=== PATIENT | female | born 1990 | race African-American/Black ===

== ENCOUNTER 2021-11-20 11:01 | Emergency (ER) | payer OTHER ==
[~2021-11-20] VITALS: Ht 147.3 cm; Wt 68.4 kg
[2021-11-20] MEDS ORDERED: ONDANSETRON ODT 4 MG TAB.RAPDIS PO ONE (11:30)
[2021-11-20] MEDS ORDERED: diphenhydrAMINE 50 MG/ML VIAL IM ONE (11:30)
[2021-11-20] MEDS ORDERED: KETOROLAC 60 MG/2 ML VIAL. IM ONE (11:45)
--- NOTE | 2021-11-20 11:59 | RAD ---
Exam performed: CT scan of the head and cervical spine without contrast. Date of Service:10/23/2021 Comparison:None available . Clinical History: Headache, dizziness, status post chiropractor visit were reviewed at the time of di ctation. It is compared Technique: Helical acquisitions are obtained from the foramen magnum to the vertex and through the ce rvical spine without IV contrast. Sagittal and coronal reformatted images are obtained and reviewed . CT head findings: The ventricles are midline without evidence of dilatation. Normal stephens-white differentiation is main tained. There is no extra axial fluid collection, intraparenchymal hemorrhage or mass lesion. The v isualized portions of the orbits, paranasal sinuses and the mastoid air cells appear clear. The calv arium is intact. Impression: 1. No acute intracranial process detected. End impression CT cervical spine findings: Slight reversal of cervical curvature is noted. Craniocervical and C1-2 articulation appears preserve d. The vertebral body heights and intravertebral disc spaces are maintained. There is no gloria or r etrolisthesis. There is no perching of facets No prevertebral soft tissue swelling is identified. The re are no fractures. No definite lymphadenopathy or masses are seen within the neck. The visualized thyroid and salivary glands appears preserved. Impression: No acute abnormality seen in the CT scan cervical spine. RS Compliance Statement: One or more of the following individualized dose reduction techniques were utilized for this examinat ion: 1. Automated exposure control 2. Adjustment of the mA and/or kV according to patient size 3. Use of iterative reconstruction technique Electronically signed by: Beatrice Miller MD (11/20/2021 11:57 AM) [facility]
--- NOTE | 2021-11-20 12:05 | PHYS DOC ---
Past History Past Medical History: No Pertinent History Past Surgical History: No Surgical History Smoking: Non-smoker Drug Use: None General Adult EDM: Chief Complaint: HEADACHE HPI: HPI: Patient is a 31 year old female who presents with throbbing headache for the past 2 days. Patient states that she visited the chiropractor under advisement from her primary care doctor at [facility]. Ever since her neck adjustment, she has had headache with associated dizziness. She states the pain is 7/10 and throbbing in bilateral temporal regions. Patient denies neck pain, paresthesias, photophobia and phonophobia. Patient visited urgent care, but was advised to present to the ER. Patient denies history of migraines. She has no other complaints at this time. Review of Systems: Review of Systems: Constitutional: Denies fever, chills or generalized weakness Eyes: Denies change in visual acuity, visual field deficits or discharge HENT: Denies ear pain, nasal congestion or sore throat Respiratory: Denies cough or shortness of breath Cardiovascular: Denies chest pain, palpitations or edema GI: Denies abdominal pain, nausea, vomiting, bloody stools or diarrhea : Denies dysuria or hematuria Musculoskeletal: See HPI Integument: Denies rash or other skin lesion Neurologic: See HPI Current Medications: Current Meds: Current Medications Medications (Trade) Dose Ordered Sig/Sandra Start Time Stop Time Status Last Admin Dose Admin Diphenhydramine HCl (Benadryl) 50 mg 1X ONCE 11/20/21 11:30 11/20/21 11:36 DC 11/20/21 11:55 50 MG Ketorolac Tromethamine (Toradol Im) 60 mg 1X ONCE 11/20/21 11:45 11/20/21 11:46 DC 11/20/21 11:50 60 MG Ondansetron HCl (Zofran Odt) 4 mg 1X ONCE 11/20/21 11:30 11/20/21 11:36 DC 11/20/21 11:30 4 MG Allergies: Allergies: Allergies Coded Allergies Type Severity Reaction Last Updated Verified No Known Drug Allergies 11/20/21 No Physical Exam: PE: Constitutional: Well developed, well nourished, no acute distress, non-toxic appearance. HENT: Normocephalic, atraumatic, bilateral external ears normal, nose normal. Eyes: PERRL, EOMI, conjunctiva normal, no discharge. Neck: Normal range of motion, no step-off, no midline tenderness,, no paraspinal tenderness, supple, no stridor. Skin: Warm, dry, no erythema, no rash. Back: No step-off, no tenderness. Extremities: No cyanosis, no clubbing, ROM intact, no edema. Neurologic: Alert and oriented x4, normal motor function, normal sensory function, no focal deficits noted. Current Patient Data: Vital Signs: Vital Signs Date Time Temp Pulse Resp B/P (MAP) Pulse Ox O2 Delivery O2 Flow Rate FiO2 11/20/21 12:35 92 18 137/92 (107) 98 Room Air 11/20/21 11:26 97.8 132 20 148/105 (119) 99 Radiology/Procedures: Radiology/Procedures: PROCEDURE: CT HEAD AND CERVICAL SPINE WO Exam performed: CT scan of the head and cervical spine without contrast. Date of Service:10/23/2021 Comparison:None available . Clinical History: Headache, dizziness, status post chiropractor visit were revie wed at the time of dictation. It is compared Technique: Helical acquisitions are obtained from the foramen magnum to the vertex and through the cervical spine without IV contrast. Sagittal and coronal reformatted images are obtained and reviewed. CT head findings: The ventricles are midline without evidence of dilatation. Normal stephens-white differentiation is maintained. There is no extra axial fluid collection, intraparenchymal hemorrhage or mass lesion. The visualized portions of the orbits, paranasal sinuses and the mastoid air cells appear clear. The calvarium is intact. Impression: 1. No acute intracranial process detected. End impression CT cervical spine findings: Slight reversal of cervical curvature is noted. Craniocervical and C1-2 articulation appears preserved. The vertebral body heights and intravertebral disc spaces are maintained. There is no gloria or retrolisthesis. There is no perching of facets No prevertebral soft tissue swelling is identified. There are no fractures. No definite lymphadenopathy or masses are seen within the neck. The visualized thyroid and salivary glands appears preserved. Impression: No acute abnormality seen in the CT scan cervical spine. PQRS Compliance Statement: One or more of the following individualized dose reduction techniques were utilized for this examination: 1. Automated exposure control 2. Adjustment of the mA and/or kV according to patient size 3. Use of iterative reconstruction technique Electronically signed by: Beatrice Miller MD (11/20/2021 11:57 AM) UI-FRANCIS Heart Score: C/O Chest Pain: No Course & Med Decision Making: Course & Med Decision Making Pertinent Labs and Imaging studies reviewed. (See chart for details) Remington Disclaimer: Remington Disclaimer: This electronic medical record was generated, in whole or in part, using a voice recognition dictation system. Departure Departure: Impression: Primary Impression: Acute non intractable tension-type headache Disposition: HOME / SELF CARE / HOMELESS Condition: IMPROVED Referrals: PCP,UNKNOWN (PCP) Patient Instructions: Headache, FAQs, Tension Headache, [id number] Additional Instructions: EMERGENCY DEPARTMENT GENERAL DISCHARGE INSTRUCTIONS Thank you for coming to [facility] (ED) today and trusting us with you care. We trust that you had a positive experience in our Emergency Department. If you wish to speak to the department management, you may call the director at [phone]. YOUR FOLLOW UP INSTRUCTIONS ARE FOLLOWS: 1. Follow up with your primary care doctor. If you do not have a primary doctor, please ask for a resource list of physicians or clinics that may be able to assist you with follow up care. 2. The emergency provider has interpreted your imaging studies, if any were ordered. The radiology nuclear weapons mechanical specialist also reviewed them. If there is a change in the findings, you will be notified in 48 hours when at all possible. 3. If a lab test or culture has been done, your results will be reviewed and you will be notified if you need a change in treatment. 4. Follow instructions verbalized to you and refer to the printouts if needed. ADDITIONAL INSTRUCTIONS AND INFORMATION: 1. Your care today has been supervised by a physician who is specially trained in emergency care. Many problems require more than one evaluation for a complete diagnosis and treatment. We recommend that you schedule your follow up appointment as recommended to ensure complete treatment of you illness or injury. If you are unable to obtain follow up care and continue to have a problem, or if your condition worsens, we recommend that you return to the ED. 2. We are not able to safely determine your condition over the phone nor are we able to give sound medical advice over the phone. For these safety reasons, if you call for medical advice we will ask you to come to the ED for further evaluation. 3. If you have any questions regarding these discharge instructions please call the ED at [phone]. SAFETY INFORMATION: In the interest of safety, wellness, and injury prevention; we encourage you to wear your seat belt, if you smoke; quite smoking, and we encourage family to use a protective helmet for bicycling and other sporting events that present an increased risk for head injury. IF YOUR SYMPTOMS WORSEN OR NEW SYMPTOMS DEVELOP, OR YOU HAVE CONCERNS ABOUT YOUR CONDITION; OR IF YOUR CONDITION WORSENS WHILE YOU ARE WAITING FOR YOUR FOLLOW UP APPOINTMENT; EITHER CONTACT YOUR PRIMARY CARE DOCTOR, THE PHYSICIAN WHOSE NAME AND NUMBER YOU WERE GIVEN, OR RETURN TO THE ED IMMEDIATELY. CRISTINA WEINSTEIN Nov 20, 2021 12:05
[2021-11-20 12:35] VITALS: BP 137/92
== END 2021-11-20 12:43 | disposition home or self-care (01) ==
LOC: ER 11:01
DX: G44.209 Tension-type headache, unspecified, not intractable (principal)
CPT/HCPCS: 70450; 72125; 96372; 99284; J1200; J1885; Q0162

== ENCOUNTER 2022-01-16 10:05 | Emergency (ER) | payer OTHER ==
[~2022-01-16] VITALS: Ht 160 cm; Wt 66.9 kg
[2022-01-16] MEDS ORDERED: IV NORMAL SALINE 1,000ML 1,000 ML IV SCH (10:30)
[2022-01-16] MEDS ORDERED: MIDAZOLAM HCL PF 5 MG/5 ML VIAL. ONE (10:36)
--- NOTE | 2022-01-16 10:42 | PHYS DOC ---
Past History Past Medical History: No Pertinent History Past Surgical History: No Surgical History Smoking: Non-smoker Alcohol Use: None Drug Use: None Adult General Chief Complaint Chief Complaint: RAPID HEART RATE HPI HPI Patient is a 31 year old female who presents with complaint of dizziness and rapid heart rate. Patient states that her symptoms have been present over the last 2 days. The patient notes that she has been getting episodes of sudden palpitations and feeling dizzy with standing. She states that when she woke she had a headache and felt dizzy again this morning. Noted high heart rate as well. Has recently been on antibiotics for treatment of sinus infection. Denie s fever, shortness of breath, chest pain, vomiting, abdominal pain, or diarrhea. Denies worsening symptoms with turning her head but notes it is primarily when she tries to stand up. Denies any significant past medical history. Review of Systems Review of Systems Constitutional: Denies fever or chills [] Eyes: Denies change in visual acuity, redness, or eye pain [] HENT: Denies nasal congestion or sore throat [] Respiratory: Denies cough or shortness of breath [] Cardiovascular: Palpitations, denies chest pain or edema [] GI: Denies abdominal pain, nausea, vomiting, bloody stools or diarrhea [] : Denies dysuria or hematuria [] Musculoskeletal: Denies back pain or joint pain [] Integument: Denies rash or skin lesions [] Neurologic: Dizziness, headache, denies focal weakness or sensory changes [] All other systems were reviewed and found to be within normal limits, except as documented in this note. Current Medications Current Medications Current Medications Medications (Trade) Dose Ordered Sig/[facility] Start Time Stop Time Status Last Admin Dose Admin Sodium Chloride 1,000 ml @ 1,000 mls/hr Q1H 01/16/22 10:30 01/16/22 11:29 Allergies Allergies Allergies Coded Allergies Type Severity Reaction Last Updated Verified No Known Drug Allergies 01/16/22 No Physical Exam Physical Exam Constitutional: Alert, afebrile, appears anxious. [] HENT: Normocephalic, atraumatic, bilateral external ears normal, oropharynx moist, no oral exudates, nose normal. [] Eyes: PERRLA, EOMI, conjunctiva normal, no discharge. [] Neck: Normal range of motion, no tenderness, supple, no stridor. [] Cardiovascular: Tachycardia, regular rhythm, no murmur [] Lungs & Thorax: Bilateral breath sounds clear to auscultation [] Abdomen: Bowel sounds normal, soft, no tenderness, no masses, no pulsatile masses. [] Skin: Warm, dry, no erythema, no rash. [] Back: No tenderness, no CVA tenderness. [] Extremities: No tenderness, no cyanosis, no clubbing, ROM intact, no edema. [] Neurologic: Alert and oriented X 3, normal motor function, normal sensory function, no focal deficits noted. [] Current Patient Data Vital Signs Vital Signs Date Time Temp Pulse Resp B/P (MAP) Pulse Ox O2 Delivery O2 Flow Rate FiO2 01/16/22 10:22 98.7 145 22 165/112 (129) 100 Room Air Lab Results Laboratory Tests Test 01/16/22 10:15 01/16/22 11:42 White Blood Count 15.3 x10^3/uL Red Blood Count 5.07 x10^6/uL Hemoglobin 13.8 g/dL Hematocrit 41.3 % Mean Corpuscular Volume 82 fL Mean Corpuscular Hemoglobin 27 pg Mean Corpuscular Hemoglobin Concent 34 g/dL Red Cell Distribution Width 13.5 % Platelet Count 395 x10^3/uL Neutrophils (%) (Auto) 55 % Lymphocytes (%) (Auto) 34 % Monocytes (%) (Auto) 7 % Eosinophils (%) (Auto) 3 % Basophils (%) (Auto) 1 % Neutrophils # (Auto) 8.5 x10^3uL Lymphocytes # (Auto) 5.2 x10^3/uL Monocytes # (Auto) 1.1 x10^3/uL Eosinophils # (Auto) 0.4 x10^3/uL Basophils # (Auto) 0.1 x10^3/uL Segmented Neutrophils % 55 % Lymphocytes % 38 % Monocytes % 4 % Eosinophils % 2 % Basophils % 1 % Platelet Estimate Adequate Sodium Level 133 mmol/L Potassium Level 3.0 mmol/L Chloride Level 96 mmol/L Carbon Dioxide Level 24 mmol/L Anion Gap 13 Blood Urea Nitrogen 8 mg/dL Creatinine 0.8 mg/dL Estimated GFR (Cockcroft-Gault) 100.6 BUN/Creatinine Ratio 10 Glucose Level 88 mg/dL Calcium Level 9.3 mg/dL Magnesium Level 2.0 mg/dL Total Bilirubin 0.6 mg/dL Aspartate Amino Transf (AST/SGOT) 18 U/L Alanine Aminotransferase (ALT/SGPT) 37 U/L Alkaline Phosphatase 68 U/L Total Protein 8.6 g/dL Albumin 4.1 g/dL Albumin/Globulin Ratio 0.9 Urine Collection Type Clean catch Urine Color Yellow Urine Clarity Clear Urine pH 6.0 Urine Specific [place] 1.010 Urine Protein Neg Urine Glucose (UA) Neg mg/dL Urine Ketones (Stick) Neg mg/dL Urine Blood Trace Urine Nitrite Neg Urine Bilirubin Neg Urine Urobilinogen Dipstick 0.2 mg/dL Urine Leukocyte Esterase Neg Urine RBC Occ /HPF Urine WBC 0 /HPF Urine Squamous Epithelial Cells Mod /LPF Urine Bacteria 0 /HPF Current Medications Medications (Trade) Dose Ordered Sig/Sandra Route PRN Reason Start Time Stop Time Status Last Admin Dose Admin Sodium Chloride 1,000 ml @ 1,000 mls/hr Q1H IV 01/16/22 10:30 01/16/22 11:29 DC 01/16/22 10:30 Midazolam HCl (Versed) 1 mg 1X ONCE IVP 01/16/22 10:45 01/16/22 10:56 DC 01/16/22 10:45 Midazolam HCl (Versed) 5 mg STK-MED ONCE .ROUTE 01/16/22 10:36 01/16/22 10:36 DC Clonazepam (KlonoPIN) 2 mg 1X PRN PO ANXIETY / AGITATION 01/16/22 10:45 01/16/22 10:46 DC Midazolam HCl (Versed) 1 mg 1X ONCE IV 01/16/22 11:00 01/16/22 11:01 DC Potassium Chloride (Klor-Con) 40 meq 1X ONCE PO 01/16/22 11:45 01/16/22 11:46 DC 01/16/22 11:36 EKG EKG Interpreted by me: Heart rate 139, sinus tachycardia, normal intervals, normal axis, no acute ST/T wave abnormalities present [] Radiology/Procedures Radiology/Procedures [address] [address] IMAGING REPORT Signed PATIENT: CHANTEL LOPEZ MACCOUNT: [id number] : 1990 LOCATION: ER AGE: 31 SEX: F EXAM STATUS: REG ER ORD. PHYSICIAN: EVI LAST MD REASON: palpatations PROCEDURE: PORTABLE CHEST 1V EXAM: Chest, single view. HISTORY: Palpitations. COMPARISON: None. FINDINGS: A frontal view of the chest is obtained. There is no infiltrate, pleural effusion or pneumothorax. The heart is normal in size. IMPRESSION: No acute pulmonary finding. Electronically signed by: Liz Howell MD (01/16/2022 10:46 AM) [id number] DICTATED AND SIGNED BY: LIZ HOWELL MD DATE: 01/16/22 1045 CC: EVI LAST MD; PCP,UNKNOWN ~ [] Heart Score C/O Chest Pain: No Risk Factors: Risk Factors: DM, Current or recent (<one month) smoker, HTN, HLP, family history of CAD, obesity. Risk Scores: Risk Factors: DM, Current or recent (<one month) smoker, HTN, HLP, family history of CAD, obesity. Course & Med Decision Making Course & Med Decision Making Pertinent Labs and Imaging studies reviewed. (See chart for details) Patient was given IV fluids and Versed in the emergency department. After administration of treatment, patient states that she is feeling much better at this time. Lab work was reviewed and was noted for hypokalemia of 3.0. Patient was administered oral potassium chloride 40 mEq in the emergency department for replacement. Patient kept on continuous cardiac monitoring during her entire emergency department stay with evidence of cardiac dysrhythmia. Suspect dehydration. Anxiety may be a factor affecting symptoms as well though this is unable to be confirmed at today's visit alone. I have recommended that the patient follow-up in the next 1 to 2 days with her primary care provider for reevaluation. Advised oral rehydration and rest throughout the day today. Recommend return to the emergency department for any worsening symptoms. Patient voiced understanding and in agreement with treatment plan. [] Dragon Disclaimer Dragon Disclaimer This electronic medical record was generated, in whole or in part, using a voice recognition dictation system. Departure Departure: Impression: Primary Impression: Dehydration Additional Impressions: Hypokalemia Palpitations Disposition: HOME / SELF CARE / HOMELESS Condition: IMPROVED Referrals: PCP,UNKNOWN (PCP) Patient Instructions: Dehydration, Adult, Hypokalemia, Palpitations Additional Instructions: Follow-up with your primary care provider tomorrow for reevaluation. Return to the emergency department for any worsening symptoms. Problem Qualifiers EVI LAST MD January 16, 2022 10:42
[2022-01-16] MEDS ORDERED: MIDAZOLAM HCL PF 2 MG/2 ML VIAL. IVP ONE (10:45)
[2022-01-16] MEDS ORDERED: clonazePAM 2 MG TABLET PO PRN (10:45)
--- NOTE | 2022-01-16 10:48 | RAD ---
EXAM: Chest, single view. HISTORY: Palpitations. COMPARISON: None. FINDINGS: A frontal view of the chest is obtained. There is no infiltrate, pleural effusion or pneumo thorax. The heart is normal in size. IMPRESSION: No acute pulmonary finding. Electronically signed by: Liz Howell MD (01/16/2022 10:46 AM) [id number]
[2022-01-16 10:51] LABS: BASO # 0.1 x10^3/uL (0.0-0.2); BASO % 1 % (0-3); EOS # 0.4 x10^3/uL (0.0-0.7); EOS % 3 % (0-3); HEMATOCRIT 41.3 % (36.0-47.0); HEMOGLOBIN 13.8 g/dL (12.0-15.5); LYMPH # 5.2 x10^3/uL (1.0-4.8); LYMPH % 34 % (24-48); MEAN CORPUSCULAR HEMOGLOBIN 27 pg (25-35); MEAN CORPUSCULAR HGB CONC 34 g/dL (31-37); MEAN CORPUSCULAR VOLUME 82 fL (79-100); MONO # 1.1 x10^3/uL (0.0-1.1); MONO % 7 % (0-9); NEUT # 8.5 x10^3uL (1.8-7.7); NEUT % 55 % (31-73); PLATELET COUNT 395 x10^3/uL (140-400); RED BLOOD COUNT 5.07 x10^6/uL (3.50-5.40); RED CELL DISTRIBUTION WIDTH 13.5 % (11.5-14.5); WHITE BLOOD COUNT 15.3 x10^3/uL (4.0-11.0)
[2022-01-16] MEDS ORDERED: MIDAZOLAM HCL PF 5 MG/5 ML VIAL. IV ONE (11:00)
[2022-01-16 11:12] LABS: ALBUMIN 4.1 g/dL (3.4-5.0); ALBUMIN/GLOBULIN RATIO 0.9 (1.0-1.7); CALCIUM 9.3 mg/dL (8.5-10.1); CREATININE 0.8 mg/dL (0.6-1.0); GFR 100.6; TOTAL BILIRUBIN 0.6 mg/dL (0.2-1.0); TOTAL PROTEIN 8.6 g/dL (6.4-8.2)
[2022-01-16 11:44] LABS: % BASOS 1 % (0-3); % EOS 2 % (0-5); % LYMPHS 38 % (24-48); % MONOS 4 % (0-10); % SEGS 55 % (35-66)
[2022-01-16 11:45] LABS: PLT ESTIMATE ADEQUATE (ADEQUATE)
[2022-01-16] MEDS ORDERED: POTASSIUM CHLORIDE 20 MEQ TABLET.ER. PO ONE (11:45)
[2022-01-16 12:11] LABS: CLARITY,URINE CLEAR; COLOR,URINE YELLOW; GLUCOSE,URINE NEG (NEG)
[2022-01-16 12:12] LABS: BACTERIA,URINE 0 /HPF (0-FEW); NITRITE,URINE NEG (NEG); RBC,URINE OCC /HPF (0-2); SQUAMOUS EPITHELIAL CELL,UR MOD /LPF; UROBILINOGEN,URINE 0.2 mg/dL (0.2 mg/dL); WBC,URINE 0 /HPF (0-4)
[2022-01-16 12:25] VITALS: BP 127/77
[2022-01-16 12:57] LABS: U PREG PATIENT NEGATIVE (NEG)
== END 2022-01-16 12:27 | disposition home or self-care (01) ==
LOC: ER 10:05
DX: E86.0 Dehydration (principal); E87.6 Hypokalemia; R00.2 Palpitations
CPT/HCPCS: 36415; 71045; 80053; 81001; 81025; 83735; 85007; 85025; 93005; 96361; 96374; 99285; J2250; J7030